=== PATIENT | female | born 1965 | race Caucasian/White ===

== ENCOUNTER 2016-12-11 12:38 | Emergency (ER) | END 2016-12-11 15:51 | disposition home or self-care (01) | DX: K21.9 Gastro-esophageal reflux disease without esophagitis (principal) | CPT/HCPCS: 71010; 80053; 81001; 83690; 85025; 93005; Z7502; Z7610 ==

== ENCOUNTER 2017-01-24 13:58 | Emergency (ER) | payer OTHER ==
[~2017-01-24] VITALS: Ht 165.1 cm; Wt 73.5 kg
[~2017-01-24 13:58] MED LIST: AZIT250T94 PO; FIORICET PO; IBUP-1542 PO; PANT40TA3 PO; TRAM50TA2 PO
[2017-01-24 14:06] VITALS: Ht 165.1 cm; Wt 73.5 kg
--- NOTE | 2017-01-24 17:43 | RADRPT ---
PROCEDURE: Ultrasound of the soft tissues of the right side of neck. CLINICAL INDICATION: Palpable lesion in the right side of the neck. TECHNIQUE: High-resolution sonography of the right side of the neck at the site of the palpable le radha was performed in the axial and sagittal planes. COMPARISON: None FINDINGS: In the right side of the neck, multiple benign-appearing submandibular lymph nodes are noted measuri ng 0.9 x 0.4 cm, 1.1 x 0.4 cm, 1.5 x 0.4 cm, 1.7 x 0.4 cm, 1.4 x 0.7 cm, and 2.3 x 1.2 cm. There is no cystic mass. IMPRESSION: 1. Multiple benign-appearing lymph nodes in the right side of the neck. 2. Any further management regarding the palpable lesion should be based on clinical grounds. RPTAT: QQ .Blaine Kay MD, Date Time Electronically viewed and signed by .Blaine Kay MD, on 01/24/2017 17:42 .R/
--- NOTE | 2017-01-24 17:44 | RADRPT ---
PROCEDURE: CT Brain without. CLINICAL INDICATION: Dizziness, confusion. TECHNIQUE: A CT of the brain was performed on multidetector high-resolution CT scanner utilizing a xial sections from the skull base through the vertex without contrast. The scan was reviewed in sof t tissue brain and high frequency resolution bone algorithm windows. Images were reviewed on a high -resolution PACS workstation. One or more the following does reduction techniques were utilized: Aut omated exposure control, adjustment of the mA/ or kV according to patient's size, or use of iterativ e reconstruction technique. The exam CTDI = 45.01, 1.4 mGy and the DLP = 632.99 mGy-cm. COMPARISON: Brain CT 08/03/2016. FINDINGS: The ventricles and sulci are age-appropriate. There is no intracranial hemorrhage, mass effect or mi dline shift. No abnormal intra-axial or extra-axial fluid collections are seen. The koo/white yong er differentiation is preserved. No acute skull abnormality is noted. The visualized paranasal sinus es are essentially clear. IMPRESSION: 1. No acute intracranial hemorrhage, transcortical infarction or mass effect. RPTAT: HH .Uzma Askew MD, MD Date Time Electronically viewed and signed by .Uzma Askew MD, MD on 01/24/2017 17:43 .N/
[2017-01-24] MEDS ORDERED: FLUT9.9S NASAL (18:05)
[2017-01-24] MEDS ORDERED: LORA-186 PO (18:05)
[2017-01-24] MEDS ORDERED: SODI126M NASAL (18:05)
--- NOTE | 2017-01-24 18:22 | ERD ---
ER Documentation Chief Complaint Date/Time DATE: 01/24/17 TIME: 18:09 Chief Complaint dizziness x 2 months; and dorsal neck pain HPI 51-year-old female complaining of mass on the right side of her neck and behind her ear 2 month. Patient also complains of feeling headache and dizziness. Described the dizziness as feeling unbalanced when she is walking. She also feels everything is moving slowly from her eyes in one direction, and seeing black spots. She has nasal congestion and watery eyes in the mornings. She also feels her ears are "clogged". She is taking Zyrtec prescribed by her PCP for allergies, without relief. She denies fever or chills. Denies shortness of breath. Denies syncope. Denies lumps in her axilla or groin. ROS All systems reviewed and are negative except as per history of present illness. Medications Home Meds Active Scripts Loratadine* (Claritin*) 10 Mg Tablet, 10 MG PO DAILY, #30 TAB Prov:SALMA SHAW NP 01/24/17 Fluticasone Propionate (Flonase Allergy Relief) 9.9 Ml [place].susp, 1 SPRAY NASAL DAILY, #1 BOTTLE TO EACH NOSTRIL Prov:SALMA SHAW NP 01/24/17 Sodium Chloride (Saline Nasal Mist) 126 Ml Mist, 2 SPRAY NASAL Q2H Y for NASAL CONGESTION, #1 BOTTLE Prov:SALMA SHAW NP 01/24/17 Pantoprazole* (Protonix*) 40 Mg Tablet.dr, 40 MG PO DAILY, #30 TAB Prov:FLAKITO BANERJEE MD 12/11/16 Tramadol HCl (Tramadol HCl) 50 Mg Tablet, 50 MG PO Q4 Y for PAIN, #20 TAB Prov:FLAKITO BANERJEE MD 12/11/16 Ibuprofen* (Motrin*) 600 Mg Tab, 600 MG PO Q6, #20 TAB Prov:FLAKITO BANERJEE MD 08/03/16 Acetamin/Butalbital/Caffeine* (Fioricet*) 1 Tab Tab, 1 TAB PO Q6H Y for PAIN, # 15 TAB Prov:FLAKITO BANERJEE MD 08/03/16 Azithromycin* (Zithromax*) 250 Mg Tablet, 250 MG PO .ZPACK DIRECTED, #6 TAB TAKE 500 MG (2 TABS) THE FIRST DAY THEN 250 MG (1 TAB) DAYS 2-5 Prov:FLAKITO BANERJEE MD 08/03/16 Allergies Allergies: Coded Allergies: No Known Allergy (Unverified , 05/24/16) PMhx/Soc Medical and Surgical Hx: pt denies Medical Hx History of Surgery: No Anesthesia Reaction: No Hx Neurological Disorder: No Hx Respiratory Disorders: No Hx Cardiac Disorders: No Hx Psychiatric Problems: No Hx Miscellaneous Medical Probl: No Hx Alcohol Use: No Hx Substance Use: No Hx Tobacco Use: No Physical Exam Vitals Vital Signs Date Time Temp Pulse Resp B/P Pulse Ox O2 Delivery O2 Flow Rate FiO2 01/24/17 14:06 98.8 79 18 147/91 98 Physical Exam General impression: Well-developed, well-nourished. Alert, oriented, in no acute distress Head: Normocephalic, atraumatic. Eyes: PERRL, EOM normal. Conjunctiva not injected. ENT: External canals clear. TM's pearly parra, clear effusion behind the TMs bilaterally. Nasal mucosa boggy and swollen. Oral mucosa and oropharynx are normal. Neck: Supple. A 2.5 cm sized posterior cervical lymph node and a 1 cm postauricular lymph node is noted on the right side, nontender. No nuchal rigidity. Respiration: Normal respiratory effort. Lungs clear to auscultate bilaterally. No wheezes, rales or rhonchi. Cardiovascular: Regular rate and rhythm. No murmurs or extra heart sounds. Abdomen: Abdomen normal to inspection. Nontender. No masses or organomegaly. Bowel sounds normal. Neuro: Mental status normal, speech normal. VAULT MANAGER II-XII intact. Normal sensation and strength in all 4 extremities. No focal weakness noted. Skin: Normal turgor. No rash or lesions. Psych: Normal mood and affect. Results 24 hrs PROCEDURE: Ultrasound of the soft tissues of the right side of neck. CLINICAL INDICATION: Palpable lesion in the right side of the neck. TECHNIQUE: High-resolution sonography of the right side of the neck at the site of the palpable lesion was performed in the axial and sagittal planes. COMPARISON: None FINDINGS: In the right side of the neck, multiple benign-appearing submandibular lymph nodes are noted measuring 0.9 x 0.4 cm, 1.1 x 0.4 cm, 1.5 x 0.4 cm, 1.7 x 0.4 cm , 1.4 x 0.7 cm, and 2.3 x 1.2 cm. There is no cystic mass. IMPRESSION: 1. Multiple benign-appearing lymph nodes in the right side of the neck. 2. Any further management regarding the palpable lesion should be based on clinical grounds. RPTAT: QQ .Flakito Kay MD, Date Time Electronically viewed and signed by .Flakito Kay MD, on 01/24/2017 17:42 .R/ CC: SALMA SHAW NP PROCEDURE: CT Brain without. CLINICAL INDICATION: Dizziness, confusion. TECHNIQUE: A CT of the brain was performed on multidetector high-resolution CT scanner utilizing axial sections from the skull base through the vertex without contrast. The scan was reviewed in soft tissue brain and high frequency resolution bone algorithm windows. Images were reviewed on a high- resolution PACS workstation. One or more the following does reduction techniques were utilized: Automated exposure control, adjustment of the mA/ or kV according to patient's size, or use of iterative reconstruction technique. The exam CTDI = 45.01, 1.4 mGy and the DLP = 632.99 mGy-cm. COMPARISON: Brain CT 08/03/2016. FINDINGS: The ventricles and sulci are age-appropriate. There is no intracranial hemorrhage, mass effect or midline shift. No abnormal intra-axial or extra- axial fluid collections are seen. The koo/white matter differentiation is preserved. No acute skull abnormality is noted. The visualized paranasal sinuses are essentially clear. IMPRESSION: 1. No acute intracranial hemorrhage, transcortical infarction or mass effect. RPTAT: HH .Uzma Askew MD, Date Time Electronically viewed and signed by .Uzma Askew MD, on 01/24/2017 17: 43 .N/ CC: SALMA SHAW. VASCULAR ULTRASOUND TECHNOLOGIST Procedures/MDM Well-appearing 51-year-old female is complaining of dizziness and mass in her right neck. CT brain is negative. Ultrasound of the neck show multiple benign appearing lymph nodes. I have very low suspicion for intracranial etiology for her dizziness. Likely the dizziness is secondary to serous otitis media due to allergic rhinitis. I suspect her cervical lymph nodes are also due to allergic causes. No suspicion for lymphoma. Patient appears well, stable for discharge and outpatient management. Medical decision making shared with patient and family. Education provided to patient and family. Patient and family expressed understanding of the plan. Medications on discharge: Flonase, Claritin, saline nasal spray. Follow-up: Primary care provider in 2-3 days or return to ED if worse. Departure Diagnosis: Primary Impression: Allergic rhinitis Allergic rhinitis seasonality: unspecified seasonality Allergic rhinitis trigger: unspecified Qualified Code: J30.9 - Allergic rhinitis, unspecified allergic rhinitis trigger, unspecified rhinitis seasonality Additional Impressions: Dizziness Lymphadenopathy of right cervical region Condition: Good Patient Instructions: Dizziness, Unk Cause, Allergic Rhinitis Additional Instructions: Llame al doctor MAANA y vern wolf WES PARA DENTRO DE 2-3 HERNANDEZ.Dgale a la secretaria que nosotros le instruimos hacer esta wes.Avise o llame si rivera condicin se empeora antes de la wes. Regresa aqui si peor o no mejor. SALMA SHAW NP Jan 24, 2017 18:21
[2017-01-24 18:53] VITALS: BP 140/74; PULSE 88; RESP 18; TEMP 98.5
== END 2017-01-24 18:54 | disposition home or self-care (01) ==
LOC: FTE 13:58
DX: R42 Dizziness and giddiness (principal); J30.9 Allergic rhinitis, unspecified; R59.0 Localized enlarged lymph nodes
CPT/HCPCS: 70450; 76536; Z7502

== ENCOUNTER 2017-04-30 15:08 | Emergency (ER) | payer OTHER ==
[~2017-04-30] VITALS: Ht 152.4 cm; Wt 80.0 kg
[~2017-04-30 15:08] MED LIST changes: +FLUT9.9S NASAL; +LORA-186 PO; +SODI126M NASAL
[2017-04-30 15:10] VITALS: Ht 152.4 cm; Wt 80.0 kg
[2017-04-30 15:59] LABS: URINE BLOOD (Dip) POC Trace-lysed (NEGATIVE)
[2017-04-30] MEDS ORDERED: traMADol 50 MG TAB PO ONE (16:00)
--- NOTE | 2017-04-30 16:46 | RADRPT ---
PROCEDURE: CT Head without. CLINICAL INDICATION: Headache. TECHNIQUE: The study was performed utilizing a multi-slice, multidetector CT scanner. Direct spira l 1 mm axial sections were obtained through the head without the use of intravenous contrast materia l. 1 or more of the following dose reduction techniques were utilized: Automated exposure control, adjustment of the mA and/or kV according to patient's size, iterative reconstruction technique. Co greta and sagittal reformations were obtained. The images were reviewed on a PACS workstation. RADIATION DOSE: CTDIvol: 41.9 mGyDLP: 630.2 mGy-cm COMPARISON: 01/24/2017, 08/03/2016 FINDINGS: There is no intracranial hemorrhage, extra-axial fluid collection, mass lesion, midline shift or hyd rocephalus. The ventricles, sulci and cisterns are within normal limits. The white matter is unrem arkable. The koo-white matter differentiation is preserved. The basal cisterns are patent. The m idline structures are intact. The orbits, calvarium and extracranial soft tissues are normal in christopher earance. The visualized paranasal sinuses, mastoid air cells and middle ear cavities are normally ae rated. IMPRESSION: 1. No acute intracranial abnormality. No intracranial hemorrhage, extra-axial fluid collection, ma ss lesion or hydrocephalous. RPTAT: DD .Tanner Go MD, MD Date Time Electronically viewed and signed by .Tanner Go MD, MD on 04/30/2017 16:46 .S/
[2017-04-30] MEDS ORDERED: FIORICET PO (16:52)
[2017-04-30] MEDS ORDERED: ATEN-51 PO (16:52)
--- NOTE | 2017-04-30 16:55 | ERD ---
ER Documentation Chief Complaint Date/Time DATE: 04/30/17 TIME: 16:52 Chief Complaint GOTTLIEB X 5 DAYS, APPEARS ANXIOUS, TEARFUL AT INTAKE HPI This 51-year-old female presents with headache for last 5 days. She points to her occipital area bilaterally as well as her bitemporal area. She denies visual changes, vomiting. She has additional multiple complaints such as paresthesias and intermittent elevated blood pressure at home. She denies chest pain or shortness of breath. Denies urinary complaints. ROS All systems reviewed and are negative except as per history of present illness. Medications Home Meds Active Scripts Atenolol* (Atenolol*) 25 Mg Tablet, 25 MG PO DAILY, #30 TAB Prov:FLAKITO BANERJEE MD 04/30/17 Acetamin/Butalbital/Caffeine* (Fioricet*) [id number] Tab, 1 TAB PO Q6H Y for PAIN, #20 TAB Prov:FLAKITO BANERJEE MD 04/30/17 Loratadine* (Claritin*) 10 Mg Tablet, 10 MG PO DAILY, #30 TAB Prov:SALMA SHAW NP 01/24/17 Fluticasone Propionate (Flonase Allergy Relief) 9.9 Ml [place].susp, 1 SPRAY NASAL DAILY, #1 BOTTLE TO EACH NOSTRIL Prov:SAMLA SHAW NP 01/24/17 Sodium Chloride (Saline Nasal Mist) 126 Ml Mist, 2 SPRAY NASAL Q2H Y for NASAL CONGESTION, #1 BOTTLE Prov:SALMA SHAW NP 01/24/17 Pantoprazole* (Protonix*) 40 Mg Tablet.dr, 40 MG PO DAILY, #30 TAB Prov:FLAKITO BANERJEE MD 12/11/16 Tramadol HCl (Tramadol HCl) 50 Mg Tablet, 50 MG PO Q4 Y for PAIN, #20 TAB Prov:FLAKITO BANERJEE MD 12/11/16 Ibuprofen* (Motrin*) 600 Mg Tab, 600 MG PO Q6, #20 TAB Prov:FLAKITO BANERJEE MD 08/03/16 Acetamin/Butalbital/Caffeine* (Fioricet*) 1 Tab Tab, 1 TAB PO Q6H Y for PAIN, # 15 TAB Prov:FLAKITO BANERJEE MD 08/03/16 Azithromycin* (Zithromax*) 250 Mg Tablet, 250 MG PO .ZPACK DIRECTED, #6 TAB TAKE 500 MG (2 TABS) THE FIRST DAY THEN 250 MG (1 TAB) DAYS 2-5 Prov:FLAKITO BANERJEE MD 08/03/16 Allergies Allergies: Coded Allergies: No Known Allergy (Unverified , 05/24/16) PMhx/Soc History of Surgery: No Anesthesia Reaction: No Hx Neurological Disorder: No Hx Respiratory Disorders: No Hx Cardiac Disorders: No Hx Psychiatric Problems: No Hx Miscellaneous Medical Probl: No Hx Alcohol Use: No Hx Substance Use: No Hx Tobacco Use: No Smoking Status: Never smoker Physical Exam Vitals Vital Signs Date Time Temp Pulse Resp B/P Pulse Ox O2 Delivery O2 Flow Rate FiO2 04/30/17 15:10 98.1 99 18 208/96 99 Physical Exam Const: [] Alert, [id number] per Head: Atraumatic Eyes: Normal Conjunctiva ENT: Normal External Ears, Nose and Mouth. Eyes PERRLA and extraocular movements intact. TMs normal. Mouth clear Neck: Full range of motion..~ No meningismus. Resp: Clear to auscultation bilaterally Cardio: Regular rate and rhythm, no murmurs Abd: Soft, non tender, non distended. Normal bowel sounds Skin: No petechiae or rashes Back: No midline or flank tenderness Ext: No cyanosis, or edema Neur: Awake and alert. Normal gait. No appreciable focal neurologic deficits. No cerebellar signs Psych: Normal Mood and Affect Results 24 hrs Laboratory Tests Test 04/30/17 16:03 Bedside Urine pH (LAB) 5.0 Bedside Urine Protein (LAB) Negative Bedside Urine Glucose (UA) Negative Bedside Urine Ketones (LAB) Negative Bedside Urine Blood Trace-lysed Bedside Urine Nitrite (LAB) Negative Bedside Urine Leukocyte Esterase (L Negative Current Medications Medications (Trade) Dose Ordered Sig/Alan Route PRN Reason Start Time Stop Time Status Last Admin Dose Admin Tramadol HCl (Ultram) 50 mg ONCE ONCE PO 04/30/17 16:00 04/30/17 16:01 DC 04/30/17 15:53 Procedures/MDM EKG: Rate/Rhythm: [Normal Sinus Rhythm] rate equals 92 QRS, ST, T-waves: [No changes consistent w/ acute ischemia] Impression: [No evidence of ischemia or arrhythmia]. Impression abnormal EKG Urine is negative for infection, glucose and hemoglobin. HCG is negative. Patient was given tramadol [address] brain was read as normal by the radiologist. Patient presents with intermittent headache for last 5 years of uncertain etiology. Anxious appears anxious and upset since symptoms of possible anxiety possibly contributing to symptoms. patient has had previous visits for headache signs and symptoms suggest tension headache. No signs or symptoms exist to suggest bleeding, mass-effect, neurologic deficit, meningitis. Patient advised to have elevated blood pressure at triage and history of elevated blood pressure and previous visits. There is no signs or symptoms to suggest endorgan damage. We will initiate atenolol 25 mg a day for hypertension and this may help with her headaches as well is that she has missed the past for headaches as well. The patient was stable with no new complaints during the ER course. Clinically, there is no current evidence to suggest meningitis, sepsis, acute abdomen, pneumonia, acute coronary syndrome, pulmonary embolism, or any other emergent condition appearing to require further evaluation or hospitalization. The patient should certainly return for any new or worsening symptoms per the aftercare instructions. They should otherwise follow-up with her primary care doctor for reevaluation this week. 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 VAMOS A TRATAR PARA PRESION GUILLE. Cheque otro vez con rivera doctor primario en el proximo baez or regresa para mas o nueva simptomas. FLAKITO BANERJEE MD Apr 30, 2017 16:55
== END 2017-04-30 17:12 | disposition home or self-care (01) ==
LOC: FTE 15:08
DX: G44.099 Other trigeminal autonomic cephalgias (TAC), not intractable (principal); I10 Essential (primary) hypertension
CPT/HCPCS: 70450; 81003; 93005; Z7502; Z7610

== ENCOUNTER 2017-06-27 14:01 | Day surgery (SDC) | payer OTHER ==
[~2017-06-27] VITALS: Ht 149.9 cm; Wt 74.0 kg
[~2017-06-27 14:01] MED LIST changes: +ATEN-51 PO
[2017-06-27 14:32] VITALS: Ht 149.9 cm; Wt 74.0 kg
[2017-06-27] MEDS ORDERED: CETI5SOL PO (14:39)
[2017-06-27 15:09] VITALS: BP 132/62; PULSE 78; RESP 20
[2017-06-27] MEDS ORDERED: LIDOCAINE 4% SOLUTION 50 ML BTL ONE (15:55)
[2017-06-27] MEDS ORDERED: FENTAnyl 50 MCG/ML VIAL ONE (16:09)
[2017-06-27] MEDS ORDERED: MIDAZOLAM 1 MG/ML 2 ML INJ ONE ×2 (16:10)
--- NOTE | 2017-06-27 16:19 | OPPN ---
Date/Time of Note Date/Time of Note DATE: 06/27/17 TIME: 16:15 Proc Note GI Procedure date: Jun 27, 2017 Pre-procedure Diagnosis Screening colonoscopy Post-procedure Diagnosis Minimal external hemorrhoids Operation Performed Colonoscopy Surgeon: LY GLEZ MD Anesthesia Type: moderate sedation Estimated blood loss: none Transfusion Required: no Specimen: none Specimens None Grafts/Implants None Tubes/Drains None Complications: no Complications None Pt Condition post procedure: stable Disposition: other Indications Screening colonoscopy Operative\Procedure Findings This is a colonoscopy After the informed written consent is obtained patient was obtained The patient was put in the left lateral side 3 mg of Versed and 50 mcg of fentanyl was given as intravenous anesthesia When the patient became somnolent Olympus video colonoscope was introduced into the rectum and advanced all the way to the cecum No polyps diverticulosis or any other abnormality detected On the way out retroflexion was performed and no hemorrhoids were noted Endoscope was withdrawn a minimal external hemorrhoids were noted At the same procedure was terminated Plan recommend repeat colonoscopy in 10 years End of dictation please send copy to my office and also to the family doctor LY GLEZ MD Jun 27, 2017 16:19
[2017-06-27 16:32] VITALS: BP 126/58; PULSE 77; RESP 12
== END 2017-06-27 16:36 | disposition home or self-care (01) ==
LOC: GIL 14:01
PROVIDERS: ATTEND Internal Medicine Gastroenterology
DX: Z12.11 Encounter for screening for malignant neoplasm of colon (principal); K64.8 Other hemorrhoids; K29.50 Unspecified chronic gastritis without bleeding
CPT/HCPCS: 43239; 45378; 88305; 88312; J2250; J3010; Z7610

== ENCOUNTER 2017-07-30 01:13 | Emergency (ER) | payer OTHER ==
[~2017-07-30] VITALS: Ht 160 cm; Wt 77.0 kg
[~2017-07-30 01:13] MED LIST changes: -ATEN-51 PO; -AZIT250T94 PO; +CETI5SOL PO; -FIORICET PO; -FLUT9.9S NASAL; -IBUP-1542 PO; -LORA-186 PO; -PANT40TA3 PO; -SODI126M NASAL; -TRAM50TA2 PO
[2017-07-30 02:31] VITALS: Ht 160 cm; Wt 77.0 kg
[2017-07-30 02:40] LABS: URINE BLOOD (Dip) POC 3+ (NEGATIVE)
[2017-07-30] MEDS ORDERED: KETOROLAC 30 MG INJ IV STA (02:51)
[2017-07-30] MEDS ORDERED: TRAM50TA2 PO (02:57)
[2017-07-30] MEDS ORDERED: PHEN-538 PO (02:57)
[2017-07-30] MEDS ORDERED: CIPR500T4 PO (02:57)
[2017-07-30] MEDS ORDERED: IBUP-1542 PO (02:57)
[2017-07-30] MEDS ORDERED: KETOROLAC 30 MG INJ ONE (03:00)
[2017-07-30] MEDS ORDERED: CEFTRIAXONE 1 GM/50 ML (PMX) 50 ML IVPB ONE ×2 (03:00)
[2017-07-30] MEDS ORDERED: PHENAZOPYRIDINE 100 MG TAB PO ONE (03:00)
[2017-07-30] MEDS ORDERED: PHENAZOPYRIDINE 100 MG TAB ONE (03:01)
--- NOTE | 2017-07-30 03:06 | ERD ---
ER Documentation Chief Complaint Date/Time DATE: 07/30/17 TIME: 03:04 Chief Complaint diff urinating HPI 51-year-old female presents to emergency department for complaints of dysuria suprapubic pain urinary urgency and frequency that started yesterday. Patient is complaining of pain upon urination, burning pain, 6/10 scale, accompanied with urinary urgency and frequency. Patient denies any hematuria. Patient complains suprapubic pain that accompanies the burning pain. Patient denies any fever or chills. Patient denies any flank pain. Patient did not take any medications to help with symptoms. ROS All systems reviewed and are negative except as per history of present illness. Medications Home Meds Active Scripts Tramadol HCl (Tramadol HCl) 50 Mg Tablet, 50 MG PO Q6 Y for SEVERE PAIN LEVEL 7- 10, #20 TAB Prov:MIKE RAWLS NP 07/30/17 Ibuprofen* (Motrin*) 600 Mg Tab, 600 MG PO Q6H Y for PAIN AND OR ELEVATED TEMP, #30 TAB Prov:MIKE RAWLS NP 07/30/17 Phenazopyridine Hcl* (Pyridium*) 200 Mg Tab, 200 MG PO TID Y for URINARY PAIN, # 6 TAB Prov:MIKE RAWLS NP 07/30/17 Ciprofloxacin Hcl* (Ciprofloxacin Hcl*) 500 Mg Tablet, 500 MG PO BID for 10 Days , TAB Prov:MIKE RAWLS NP 07/30/17 Reported Medications Cetirizine Hcl* (Cetirizine Hcl*) 5 Mg/5 Ml Solution, 5 MG PO DAILY, #150 ML 06/27/17 Allergies Allergies: Coded Allergies: No Known Allergy (Unverified , 07/30/17) PMhx/Soc History of Surgery: Yes (TUBAL LIGATION/ CYST GALLBLADDER) Anesthesia Reaction: No Hx Neurological Disorder: No Hx Respiratory Disorders: No Hx Cardiac Disorders: No Hx Psychiatric Problems: No Hx Miscellaneous Medical Probl: Yes (SEASONAL ALLERGY) Hx Alcohol Use: No Hx Substance Use: No Hx Tobacco Use: No Smoking Status: Never smoker FmHx Family History: No coronary disease, No diabetes, No other Physical Exam Vitals Vital Signs Date Time Temp Pulse Resp B/P Pulse Ox O2 Delivery O2 Flow Rate FiO2 07/30/17 02:31 98.1 77 20 140/70 98 Physical Exam GENERAL: The patient is well developed and appropriate for usual state of health, in no apparent distress. CHEST: Clear to auscultation bilaterally. There are no rales, wheezes or rhonchi. HEART: Regular rate and rhythm. No murmurs, clicks, rubs or gallops. No S3 or S4. ABDOMEN: Soft, nontender and nondistended. Good bowel sounds. No rebound or guarding. No gross peritonitis. No gross organomegaly or masses. No Nova sign or McBurney point tenderness. BACK: No midline or flank tenderness. EXTREMITIES: Equal pulses bilaterally. There is no peripheral clubbing, cyanosis or edema. No focal swelling or erythema. Full range of motion. Grossly neurovascularly intact. NEURO: Alert and oriented. Cranial nerves 2-12 intact. Motor strength in all 4 extremities with 5/5 strength. Sensation grossly intact. Normal speech and gait. SKIN: There is no apparent rash or petechia. The skin is warm and dry. HEMATOLOGIC AND LYMPHATIC: There is no evidence of excessive bruising or lymphedema. No gross cervical, axillary, or inguinal lymphadenopathy. Results 24 hrs Laboratory Tests Test 07/30/17 02:46 Bedside Urine pH (LAB) 5.5 Bedside Urine Protein (LAB) 2+ Bedside Urine Glucose (UA) Negative Bedside Urine Ketones (LAB) Negative Bedside Urine Blood 3+ Bedside Urine Nitrite (LAB) Negative Bedside Urine Leukocyte Esterase (L 2+ Current Medications Medications (Trade) Dose Ordered Sig/Alan Route PRN Reason Start Time Stop Time Status Last Admin Dose Admin Ceftriaxone Sodium (Rocephin) 50 ml @ 100 mls/hr ONCE ONCE IVPB 07/30/17 03:00 07/30/17 03:29 UNV Ketorolac Tromethamine (Toradol) 30 mg ONCE STAT IV 07/30/17 02:51 07/30/17 02:52 UNV Phenazopyridine HCl 200 mg 200 mg ONCE ONCE PO 07/30/17 03:00 07/30/17 03:01 UNV Ceftriaxone Sodium (Rocephin) 50 ml @ ud STK-MED ONCE IVPB 07/30/17 03:00 07/30/17 03:01 DC Ketorolac Tromethamine (Toradol) 30 mg STK-MED ONCE .ROUTE 07/30/17 03:00 07/30/17 03:01 DC Phenazopyridine HCl (Pyridium) 100 mg STK-MED ONCE .ROUTE 07/30/17 03:01 07/30/17 03:02 DC Patient was given medication for pain here in emergency department, after treatment, patient verbalized feeling much better. Patient's pain is improved. Rocephin IV and Pyridium was given here in the emergency department, tolerated medication well. Procedures/MDM Medical Decision Making: Patients symptoms are consistent with urinary tract infection. There is low suspicion for pyelonephritis. There is low suspicion for abdominal emergencies at this time. Patients abdominal exam is normal. There is low suspicion for sepsis. Patient appears well and is hemodynamically stable. Disposition: Home. Stable Prescription Pyridium, tramadol, ibuprofen, ciprofloxacin Instructions: Patient is advised to take medications as prescribed. Patient is advised to rest, increase fluid intake and do good perineal hygiene. Patient is advised that if symptoms are worse, severe abdominal pain, uncontrolled vomiting , high fever, severe flank pain, worst signs and symptoms, to return to the emergency department immediately. Otherwise, patient can follow up with primary care doctor in 5-7 days. Disclaimer: Inadvertent spelling and grammatical errors are likely due to EHR/ dictation software use and do not reflect on the overall quality of patient care. Also, please note that the electronic time recorded on this note does not necessarily reflect the actual time of the patient encounter. Departure Diagnosis: Primary Impression: UTI (urinary tract infection) Urinary tract infection type: acute cystitis Hematuria presence: without hematuria Qualified Code: N30.00 - Acute cystitis without hematuria Condition: Stable Patient Instructions: Understanding Urinary Tract Infections (UTIs) MIKE RAWLS NP Jul 30, 2017 03:06
== END 2017-07-30 03:32 | disposition home or self-care (01) ==
LOC: FTE 01:13
DX: N30.00 Acute cystitis without hematuria (principal)
CPT/HCPCS: 81003; 96374; 96375; J0696; J1885; Z7502; Z7610

== ENCOUNTER 2019-03-03 13:30 | Emergency (ER) | payer OTHER ==
[~2019-03-03] VITALS: Ht 154.9 cm; Wt 83.0 kg
[~2019-03-03 13:30] MED LIST changes: +CIPR500T4 PO; +IBUP-1542 PO; +PHEN-538 PO; +TRAM50TA2 PO
[2019-03-03 13:31] VITALS: BP 151/79; PULSE 93; RESP 20; Ht 154.9 cm; Wt 83.0 kg
[2019-03-03] MEDS ORDERED: PROM6.2515 PO (13:44)
[2019-03-03] MEDS ORDERED: BENZ-6 PO (13:44)
--- NOTE | 2019-03-03 14:47 | ERD ---
ER Documentation Chief Complaint Chief Complaint cough and chest congestion x 3 days HPI 53-year-old female presenting with cough and congestion times 3 days. Patient denies any fevers. She is been taking NyQuil. Describes a cough as dry. Denies any pleuritic chest pain. Denies nasal congestion or sore throat. Denies medical problems. NKDA. Surgical history cholecystectomy tubal ligation. Social history denies ROS All systems reviewed and are negative except as per history of present illness. Medications Home Meds Active Scripts Benzonatate* (Tessalon Perle*) 100 Mg Capsule, 100 MG PO Q8H PRN for COUGH, #30 CAP Prov:JA MOREL PA-C 03/03/19 Promethazine Hcl* (Promethazine Hcl* Syrup) 6.25 Mg/5 Ml Syrup, 6.25 MG PO Q6H PRN for COUGH, #100 ML Prov:JA MOREL PA-C 03/03/19 Tramadol HCl (Tramadol HCl) 50 Mg Tablet, 50 MG PO Q6 PRN for SEVERE PAIN LEVEL 7-10, #20 TAB Prov:MIKE RAWLS NP 07/30/17 Ibuprofen* (Motrin*) 600 Mg Tab, 600 MG PO Q6H PRN for PAIN AND OR ELEVATED TEMP, #30 TAB Prov:MIKE RAWLS NP 07/30/17 Phenazopyridine Hcl* (Pyridium*) 200 Mg Tab, 200 MG PO TID PRN for URINARY PAIN, #6 TAB Prov:MIKE RAWLS NP 07/30/17 Ciprofloxacin Hcl* (Ciprofloxacin Hcl*) 500 Mg Tablet, 500 MG PO BID for 10 Days, TAB Prov:MIKE RAWLS NP 07/30/17 Reported Medications Cetirizine Hcl* (Cetirizine Hcl*) 5 Mg/5 Ml Solution, 5 MG PO DAILY, #150 ML 06/27/17 Allergies Allergies: Coded Allergies: No Known Allergy (Unverified , 07/30/17) PMhx/Soc History of Surgery: Yes (TUBAL LIGATION/ CYST GALLBLADDER) Anesthesia Reaction: No Hx Neurological Disorder: No Hx Respiratory Disorders: No Hx Cardiac Disorders: No Hx Psychiatric Problems: No Hx Miscellaneous Medical Probl: Yes (SEASONAL ALLERGY) Hx Alcohol Use: No Hx Substance Use: No Hx Tobacco Use: No Smoking Status: Never smoker FmHx Family History: No diabetes, No coronary disease, No other Physical Exam Vitals Vital Signs Date Temp Pulse Resp B/P (MAP) Pulse Ox O2 O2 Flow FiO2 Time Delivery Rate 03/03/19 99.3 93 20 151/79 96 13:31 (103) Physical Exam GENERAL: The patient is well-appearing, well-nourished, in no acute distress HEENT: Atraumatic. Conjunctivae are pink. Pupils equal, round, and reactive to light. There is no scleral icterus. Tympanic membranes clear bilaterally. Oropharynx clear. NECK: C-spine is soft and supple. There is no meningismus. There is no cervical lymphadenopathy. CHEST: Clear to auscultation bilaterally. There are no rales, wheezes or rhonchi. HEART: Regular rate and rhythm. No murmurs, clicks, rubs or gallops. Procedures/MDM MDM: 53-year-old female presenting with cough and congestion. I have low suspicion for pneumonia. I have low suspicion for meningitis or sepsis. I have low suspicion for bacterial HENT infection. Patient is discharged with strict ER precautions and told to follow-up with primary care within 1-2 days for close evaluation. All questions answered at discharge Departure Diagnosis: Primary Impression: Cough Condition: Stable Patient Instructions: Cough, Chronic, Uncertain Cause, (Adult) Referrals: [facility] Additional Instructions: FOLLOW UP WITH YOUR PRIMARY CARE PHYSICIAN TOMORROW.Return to this facility if you are not improving as expected. JA MOREL PA-C Mar 03, 2019 14:47
== END 2019-03-03 14:06 | disposition home or self-care (01) ==
LOC: FTE 13:30
DX: R05 Cough (principal)
CPT/HCPCS: 99283

== ENCOUNTER 2019-03-06 00:23 | Emergency (ER) | payer SELFPAY ==
[~2019-03-06] VITALS: Wt 82.6 kg
[~2019-03-06 00:23] MED LIST changes: +BENZ-6 PO; +PROM6.2515 PO
[2019-03-06 00:31] VITALS: BP 188/88; PULSE 124; RESP 16
== END 2019-03-06 03:00 | disposition left against medical advice (07) ==
LOC: FTE 00:23
DX: Z53.21 Procedure and treatment not carried out due to patient leaving prior to being seen by health care provider (principal)